=== PATIENT | male | born 1960 | race Caucasian/White ===

== ENCOUNTER 2019-02-22 17:38 | Emergency (ER) | payer OTHER ==
[~2019-02-22] VITALS: Ht 180.3 cm; Wt 74.8 kg
[2019-02-22 17:38] VITALS: BP 131/64
--- NOTE | 2019-02-22 17:53 | NUR ---
TO ER 10, AWAITING FOR PROVIDER TO SEE
== END 2019-02-22 18:16 | disposition home or self-care (01) ==
LOC: ER 17:42
DX: J06.9 Acute upper respiratory infection, unspecified (principal); R09.81 Nasal congestion; F19.10 Other psychoactive substance abuse, uncomplicated

== ENCOUNTER 2019-08-13 04:55 | Emergency (ER) | payer OTHER ==
[~2019-08-13] VITALS: Ht 185.4 cm; Wt 83.9 kg
--- NOTE | 2019-08-13 05:12 | NUR ---
PT CAME TO ER C/O UPPER ABDOMINAL PAIN. PT STATES THAT HE HAS BEEN HAVING EXTREME PAIN. HX OF GALLBLADDER STONES. AAOX4. NO SOB. BREATHING EVENLY AND UNLABORED ON ROOM AIR. CONNECTED TO MONITOR.
--- NOTE | 2019-08-13 05:19 | NUR ---
US AT BEDSIDE
[2019-08-13] MEDS ORDERED: MORPHINE SULFATE INJ 2 MG/ML DISP.SYRIN ONE (05:48)
[2019-08-13 05:55] LABS: APPEARANCE,URINE Clear (CLEAR); BILIRUBIN,URINE Negative (NEGATIVE); BLOOD, URINE Negative Ery/uL (NEGATIVE); COLOR,URINE Yellow (YELLOW); KETONES,URINE Negative (NEGATIVE); LEUKOCYTE ESTERASE ,URINE Negative (NEGATIVE); NITRITE, URINE Negative (NEGATIVE); PH,URINE 5.5 (5.0-8.0); PROTEIN,URINE Negative (NEGATIVE); UGLUCOSE Negative (NEGATIVE); UROBILINOGEN,URINE 0.2 EU/dL (0.2)
[2019-08-13 05:59] LABS: BASOPHILS # (AUTO) 0.1 /CMM (0.0-0.2); BASOPHILS % (AUTO) 1.1 % (0.0-2.0); EOSINOPHILS % (AUTO) 5.1 % (0.0-6.0); HEMATOCRIT 47 % (39-51); HEMOGLOBIN 15.6 g/dL (13.5-17.5); LYMPHOCYTES # (AUTO) 2.6 /CMM (0.8-4.8); LYMPHOCYTES % (AUTO) 36.5 % (20.0-44.0); MEAN CORPUSCULAR HGB CONC 34 g/dl (31.0-36.0); MEAN CORPUSCULAR VOLUME 84 fL (80-96); MONOCYTES # (AUTO) 0.5 /CMM (0.1-1.30); MONOCYTES % (AUTO) 7.7 % (2.0-12.0); NEUTROPHILS # (AUTO) 3.5 /CMM (1.8-8.9); NEUTROPHILS % (AUTO) 49.6 % (43.0-81.0); PLATELET COUNT (AUTO) 146 /CMM (150-450); RED BLOOD CELL COUNT(AUTO) 5.55 MIL/uL (4.5-6.0)
[2019-08-13] MEDS ORDERED: MORPHINE SULFATE INJ 2 MG/ML DISP.SYRIN IV ONE ×2 (06:00→06:30)
[2019-08-13 06:06] LABS: CALCIUM, SERUM 8.6 mg/dL (8.5-10.1); CREATININE 1.2 mg/dL (0.6-1.3); POTASSIUM 3.9 mmol/L (3.5-5.1)
[2019-08-13 06:12] LABS: ALBUMIN 3.5 g/dL (3.4-5.0); BILIRUBIN,DIRECT 0.1 mg/dL (0.0-0.2); BILIRUBIN,TOTAL 0.3 mg/dL (0.2-1.0); TOTAL PROTEIN, SERUM 7.3 g/dL (6.4-8.2)
[2019-08-13] MEDS ORDERED: MORPHINE SULFATE INJ 4 MG/ML DISP.SYRIN ONE (06:27)
[2019-08-13] MEDS ORDERED: ONDANSETRON HCL/PF 4 MG/2 ML VIAL ONE (06:27)
[2019-08-13] MEDS ORDERED: IV NS 0.9% 500 ML BAG IV ONE (06:30)
[2019-08-13] MEDS ORDERED: ONDANSETRON HCL/PF 4 MG/2 ML VIAL IVP ONE (06:30)
--- NOTE | 2019-08-13 07:49 | NUR ---
REPORT GIVEN TO SARTHAK GARCIA FOR RICK.
[2019-08-13] MEDS ORDERED: HYDROMORPHONE 1 MG/1 ML DISP.SYRIN IV ONE (08:00)
[2019-08-13] MEDS ORDERED: HYDROMORPHONE 1 MG/1 ML DISP.SYRIN ONE (08:01)
--- NOTE | 2019-08-13 09:41 | NUR ---
CALLED [facility] FOR TRANSPORT TO [place]. ETA 101
--- NOTE | 2019-08-13 10:46 | NUR ---
Patient discharged to home in stable condition. Written and verbal after care instructions given. Patient verbalizes understanding of instruction. IV removed. Catheter intact and site benign. Pressure and 4x4 applied to site. No bleeding noted.
[2019-08-13 10:54] VITALS: BP 145/80
--- NOTE | 2019-08-13 10:57 | NUR ---
Young kaye in EDM - 08/13/19 at 1057 by RADHA shahab perales called regarding pt plt level of 41. made aware
[2019-08-17] MEDS ORDERED: CEPH-570 PO (13:50)
== END 2019-08-13 10:57 | disposition home or self-care (01) ==
LOC: ER 04:56
DX: K80.50 Calculus of bile duct without cholangitis or cholecystitis without obstruction (principal)
CPT/HCPCS: 36415; 74176; 76705; 80048; 80076; 81001; 83690; 85025; 96374; 96375; 96376; 99284; J1170; J2270; J2405; J7040; 81000-TC

== ENCOUNTER 2019-08-13 22:21 | Inpatient (IN) | payer OTHER ==
[~2019-08-13] VITALS: Ht 180.3 cm; Wt 78.0 kg
--- NOTE | 2019-08-13 22:35 | NUR ---
URINE COLLECTED AND SENT TO LAB
--- NOTE | 2019-08-13 22:43 | NUR ---
[id number] FROM HOME C/C ABD PAIN. AAOX4. WAS SEEN HERE LAST NIGHT FOR GALLSTONES. PLACED ON MONITOR AND PULSE OX. AWAITING MD FOR EVAL.WILL COTNINUE TO MONITOR. NO ACUTE DISTRESS NOTED. VSS. RR EVEN AND UNALBORED.
[2019-08-13] MEDS ORDERED: ONDANSETRON HCL/PF 4 MG/2 ML VIAL IVP ONE (23:00)
[2019-08-13] MEDS ORDERED: HYDROMORPHONE INJ 2 MG/ML DISP.SYRIN IV ONE (23:00)
[2019-08-13] MEDS ORDERED: IBUPROFEN 600 MG TABLET PO ONE ×2 (23:00→23:07)
[2019-08-13] MEDS ORDERED: ONDANSETRON HCL/PF 4 MG/2 ML VIAL ONE (23:07)
[2019-08-13] MEDS ORDERED: HYDROMORPHONE 1 MG/1 ML DISP.SYRIN ONE (23:07)
[2019-08-13 23:12] LABS: BASOPHILS # (AUTO) 0.1 /CMM (0.0-0.2); BASOPHILS % (AUTO) 1.2 % (0.0-2.0); EOSINOPHILS % (AUTO) 2.9 % (0.0-6.0); HEMATOCRIT 47 % (39-51); HEMOGLOBIN 15.8 g/dL (13.5-17.5); LYMPHOCYTES # (AUTO) 2.4 /CMM (0.8-4.8); MEAN CORPUSCULAR HGB CONC 34 g/dl (31.0-36.0); MEAN CORPUSCULAR VOLUME 84 fL (80-96); MONOCYTES # (AUTO) 0.6 /CMM (0.1-1.30); MONOCYTES % (AUTO) 6.9 % (2.0-12.0); NEUTROPHILS # (AUTO) 5.7 /CMM (1.8-8.9); PLATELET COUNT (AUTO) 163 /CMM (150-450); RED BLOOD CELL COUNT(AUTO) 5.57 MIL/uL (4.5-6.0); WHITE BLOOD COUNT (AUTO) 9.1 K/uL (4.3-11.0)
[2019-08-13 23:20] LABS: CREATININE 1.2 mg/dL (0.6-1.3); POTASSIUM 4.1 mmol/L (3.5-5.1)
[2019-08-13 23:26] LABS: ALBUMIN 3.7 g/dL (3.4-5.0); BILIRUBIN,TOTAL 0.3 mg/dL (0.2-1.0); TOTAL PROTEIN, SERUM 7.5 g/dL (6.4-8.2)
--- NOTE | 2019-08-13 23:38 | NUR ---
US at bedside
--- NOTE | 2019-08-14 01:37 | NUR ---
PAGED DR.TIM RICHARDSON FOR ADMISSION.
--- NOTE | 2019-08-14 02:30 | NUR ---
RESTING COMFORTABLY. VSS.
--- NOTE | 2019-08-14 02:46 | NUR ---
REPORT GIVEN TO RANDOLPH GARCIA FOR RICK
[2019-08-14 03:05] VITALS: BP 134/83
[2019-08-14 03:13] VITALS: BP 134/83
--- NOTE | 2019-08-14 03:15 | NUR ---
ADMISSION NOTE PATIENT ADMITTED TO [facility] RM 320 BED 1 FOR CHOLELITHIASIS. PATIENT REPORTS ABD PAIN ONLY 2/10 AT THIS TIME TO UPPER REGION OF ABD. PATIENT REPORTS HE HAD SEVERE STOMACH PAIN YESTERDAY 10 AFTER EATING BOTH YESTERDAY AND CALLED AMBULANCE HE THOUGHT HE WAS HAVING A HEART ATTACK. ORIENTED TO ROOM. BED DOWN LOCKED SRX2 WILL AWAIT FURTHER ORDERS.
[2019-08-14] MEDS ORDERED: IV NS 0.9% 1,000 ML IV PRN (03:38)
[2019-08-14] MEDS ORDERED: ACETAMINOPHEN 325 MG TABLET PO PRN (04:00)
[2019-08-14] MEDS ORDERED: ONDANSETRON HCL/PF 4 MG/2 ML VIAL IVP PRN (04:00)
[2019-08-14] MEDS ORDERED: Z GUARD REMEDY 2 OZ OINT TP PRN (04:00)
--- NOTE | 2019-08-14 06:20 | NUR ---
PT REFUSING IVF, CLOSING NOTE PATIENT IN BED RESTING. IV TO RIGHT AC KEEPS HAVING DOWNWARD OCCLUSION. PT STATES AT THIS TIME, "YOU KNOW, I REALLY DON'T WANT THAT THING RUNNING RIGHT NOW CAN WE TURN IT OFF I WANT TO REST RIGHT NOW." IVF PUMP TURNED OFF RIGHT AC 20 GAUGE PATENT CDI. NO S/S OF INFLITRATION. PT ENCOURAGED TO DRINK PO FLUIDS. BED DOWN LOCKED SRX2 WILL CONT OT MONITOR.
[2019-08-14 08:00] VITALS: BP 106/55
[2019-08-14] MEDS: MORPHINE SULFATE INJ 2 MG/ML DISP.SYRIN IV PRN ×3 (09:38→20:51)
--- NOTE | 2019-08-14 12:00 | NUR ---
IV BEEPING,NO BLOOD RETURN-RESTARTED RT. FOREARM #[id number] ANGIO.
[2019-08-14] MEDS: LEVOFLOXACIN 500 MG /D5W 100ML 500 MG in PREMIX 1 EA IV SCH (15:29)
[2019-08-14 16:00] VITALS: BP 129/77
--- NOTE | 2019-08-14 18:30 | NUR ---
med. x 2 for abd. pain with morphine with good effect. had hida scan today.
--- NOTE | 2019-08-14 19:53 | NUR ---
MS/RN OPENING NOTES RECEIVED PATIENT IN BED, AWAKE, ALERT X3, ABLE TO VERBALIZE NEEDS, DR FLOWER WAS AT BEDSIDE DISCUSSED PLAN FOR PROCEDURE EITHER TOMORROW OR TUESDAY TO REMOVE GALL BLADDER OUT. PATIENT HAD HIDA SCAN AND MUNDO MENTIONED ABOUT ,MRCP. WILL MONITOR, PATIENT REPORTED WITH ABDOMINAL PAIN. TO MONITOR AMD PROVIDED NEEDED MEDS.BED LOCKED, CALL LIGHTS WITHIN REACH. WILL MONITOR.
[2019-08-14 20:00] VITALS: BP 110/71
[2019-08-15] VITALS (7 sets, daily range): BP systolic 100–144; BP diastolic 57–92
--- NOTE | 2019-08-15 06:11 | NUR ---
320-1MS/RN NOTES PATIENT ABLE TO SLEEP INTERMITENTLY., RESPIRATIONS EVEN AND UNLABORED, BED LOVKED, CAA LIGHTS WITHIN REQFGBED LOCKED, CINTHYA WILL ENDORSE TO AM RN FOR RICK
[2019-08-15 06:20] LABS: BASOPHILS # (AUTO) 0.1 /CMM (0.0-0.2); EOSINOPHILS % (AUTO) 4.5 % (0.0-6.0); HEMATOCRIT 45 % (39-51); LYMPHOCYTES # (AUTO) 1.9 /CMM (0.8-4.8); LYMPHOCYTES % (AUTO) 27.7 % (20.0-44.0); MEAN CORPUSCULAR HGB CONC 33 g/dl (31.0-36.0); MEAN CORPUSCULAR VOLUME 83 fL (80-96); MONOCYTES # (AUTO) 0.5 /CMM (0.1-1.30); MONOCYTES % (AUTO) 7.3 % (2.0-12.0); NEUTROPHILS # (AUTO) 4.1 /CMM (1.8-8.9); NEUTROPHILS % (AUTO) 59.5 % (43.0-81.0); PLATELET COUNT (AUTO) 146 /CMM (150-450)
[2019-08-15 06:59] LABS: CREATININE 1.3 mg/dL (0.6-1.3); PHOSPHORUS 3.5 mg/dL (2.5-4.9); POTASSIUM 4.4 mmol/L (3.5-5.1)
[2019-08-15] MEDS: LEVOFLOXACIN 500 MG /D5W 100ML 500 MG in PREMIX 1 EA IV SCH (11:53)
[2019-08-15] MEDS ORDERED: ANESTHESIA TRAY IN PYXIS 1 EA TRAY MC ONE (15:05)
[2019-08-15] MEDS ORDERED: BUPIVACAINE 0.5 % PF 150 MG/30 ML VIAL ONE (15:05)
[2019-08-15] MEDS ORDERED: ROCURONIUM BROMIDE 50 MG/5 ML ONE (18:32)
[2019-08-15] MEDS ORDERED: HYDROMORPHONE INJ 2 MG/ML DISP.SYRIN ONE (18:33)
[2019-08-15] MEDS ORDERED: HYDROMORPHONE 1 MG/1 ML DISP.SYRIN ONE (20:04)
--- NOTE | 2019-08-15 20:15 | NUR ---
REPORT FROM OR;PT TO RETURN TO ROOM. REPORT RECIEVED FROM ANAY FROM OR. PATIEHT HAD LAP ALEXANDER. HERMINIA DRAIN WAS INSERTED. PATIENT HAS 4 PUNCTURES/HOLES IN ABD DRESSINGDS CDI NO S/S OF BLEEDING VSS. PATIENT RECENTLY RECIEVED DILAUDID 0.4MG STATES SHE WILL KEEP PATIENT FOR 15 MINS BEFORE BRINGING UP TO ENSURE THERE HAS NOT BEEN A REACTION
[2019-08-15] MEDS ORDERED: ZOLPIDEM TARTRATE 5 MG TABLET PO PRN (20:30)
[2019-08-15] MEDS ORDERED: IV D5/0.45 NACL W/20 MEQ KCL 1L IV PRN ×2 (20:30)
--- NOTE | 2019-08-15 20:35 | NUR ---
patient returned from or post op vitals initiated new orders recieved.
--- NOTE | 2019-08-15 21:43 | NUR ---
PHARMACY DID NOT DELIVER D 5 07/19 NS FAXED REQUEST TO [facility] AND CALLED NATHANIEL TO REQUEST BAG BE DELIVERED FROM [facility].
[2019-08-15] MEDS ORDERED: IV PREMIX D5 1/2NS + KCL 1,000 ML IV ONE (21:55)
[2019-08-15] MEDS: ANCEF 1 GM/50 ML D5W IV SCH ×2 (22:57)
--- NOTE | 2019-08-16 02:30 | NUR ---
NURSE NOTES IS, CRISTAL, PT AMBULATED AMBIEN REQUESTED PATIENT ADMINISTERED AMBIEN ORDERED PATIENT AMBULATED OOB TO BATHROOM TO VOID. PATIENT GIVEN IS INSTRUCTED ON ITS USE, VERBALIZED UNDERSTANDING, DEMONSTRATED PROPER USE.
[2019-08-16] MEDS: ANCEF 1 GM/50 ML D5W IV SCH ×6 (05:23→20:38)
[2019-08-16 07:11] LABS: BASOPHILS % (AUTO) 0.5 % (0.0-2.0); EOSINOPHILS % (AUTO) 0.1 % (0.0-6.0); HEMATOCRIT 42 % (39-51); HEMOGLOBIN 14.2 g/dL (13.5-17.5); LYMPHOCYTES # (AUTO) 1.1 /CMM (0.8-4.8); LYMPHOCYTES % (AUTO) 10.5 % (20.0-44.0); MEAN CORPUSCULAR HGB CONC 34 g/dl (31.0-36.0); MEAN CORPUSCULAR VOLUME 83 fL (80-96); MONOCYTES # (AUTO) 0.6 /CMM (0.1-1.30); MONOCYTES % (AUTO) 5.8 % (2.0-12.0); NEUTROPHILS # (AUTO) 8.3 /CMM (1.8-8.9); NEUTROPHILS % (AUTO) 83.1 % (43.0-81.0); PLATELET COUNT (AUTO) 153 /CMM (150-450); RED BLOOD CELL COUNT(AUTO) 5.07 MIL/uL (4.5-6.0)
--- NOTE | 2019-08-16 07:40 | NUR ---
RN OPENING NOTES RECEIVED PATIENT IN BED RESTING. AWAKE. A/OX4, ABLE TO MAKE NEEDS KNOWN. NOT IN ANY FORM OF DISTRESS. NO SOB. COMPLAINTS OF ABDOMINAL PAIN 01/24, WILL ADMINISTER PAIN MEDS ACCORDINGLY. IV ACCESS INTACT AND PATENT. KEPT PATIENT SAFE AND COMFORTABLE. BED IN LOW/LOCKED POSITION. SIDERAILS UPX2, CALL LIGHT IN REACH. WILL MONITOR PATIENT ACCORDINGLY.
[2019-08-16 07:51] LABS: ALBUMIN 2.9 g/dL (3.4-5.0); BILIRUBIN,TOTAL 0.4 mg/dL (0.2-1.0); CALCIUM, SERUM 8.7 mg/dL (8.5-10.1); CREATININE 1.4 mg/dL (0.6-1.3); POTASSIUM 4.1 mmol/L (3.5-5.1); TOTAL PROTEIN, SERUM 6.5 g/dL (6.4-8.2)
[2019-08-16] MEDS: MORPHINE SULFATE INJ 2 MG/ML DISP.SYRIN IV PRN ×3 (07:54→18:34)
--- NOTE | 2019-08-16 07:54 | NUR ---
RN NOTES COMPLAINTS OF ABDOMINAL PAIN 02/24, PATIENT REQUESTED MORPHINE. MORPHINE 2MG IV GIVEN ORDERED. WILL REASSESS ACCORDINGLY
[2019-08-16 07:55] VITALS: BP 102/65
[2019-08-16] MEDS: HYDROCODONE/APAP 5/325MG 1 EACH TABLET PO PRN ×2 (10:34→16:05)
[2019-08-16 16:00] VITALS: BP 130/76
[2019-08-16 18:00] VITALS: BP 136/76
--- NOTE | 2019-08-16 18:20 | NUR ---
transferred patient to room 204-1. bedside report given to JOSE Combs for continuity of care.
--- NOTE | 2019-08-16 18:30 | NUR ---
RN CLOSING NOTES ALERT AND AWAKE ORIENTED X4. NO SOB. C/O PAIN, PAIN MED GIVEN ORDERED YESENIA WELL. RIGHT FA #[id number] INTACT AND PATENT. ABDOMINAL SURGICAL INCISION SITE INTACT. HERMINIA DRAIN INTACT WITH 10 ML OUTPUT SEROUS DRAINAGE. ORIENTED PATIENT TO ROOM, ROOMMATE, UNIT AND CALL LIGHT. BED IN LOW/LOCKED POSITION. SIDERAILS UPX2, CALL LIGHT IN REACH. IN NO APPARENT DISTRESS.
[2019-08-16 20:00] VITALS: BP 120/71
[2019-08-17] MEDS: MORPHINE SULFATE INJ 2 MG/ML DISP.SYRIN IV PRN ×3 (01:29→12:48)
--- NOTE | 2019-08-17 01:30 | NUR ---
MS RN NOTES PATIENT COMPLAINED OF 9/10 ABDOMINAL PAIN, MORPHINE 2MG GIVEN VIA IV PUSH. NON-PHARMACOLOGICAL INTERVENTIONS PROVIDED. VITAL SIGNS WNL. WILL CONTINUE TO MONITOR.
[2019-08-17] MEDS: ANCEF 1 GM/50 ML D5W IV SCH ×4 (05:05→12:39)
--- NOTE | 2019-08-17 06:55 | NUR ---
RN NOTES AWAKE, MORNING CARE RENDERED, CALL LIGHT WITHIN REACH, AFSHINAILSUPX2, PT. NEEDS ATTENDED
--- NOTE | 2019-08-17 06:57 | NUR ---
RN NOTES AWAKE, MORNING CARE RENDERED, HERMINIA DRAIN IN PLACE, CALL LIGHT WITHIN REACH, SIDERAILSUPX2, PT.NEEDS ATTENDED
[2019-08-17 08:00] VITALS: BP 130/66
[2019-08-17 13:11] LABS: CALCIUM, SERUM 8.3 mg/dL (8.5-10.1); CREATININE 1.2 mg/dL (0.6-1.3)
[2019-08-17 13:14] LABS: ALBUMIN 2.9 g/dL (3.4-5.0); BILIRUBIN,TOTAL 0.4 mg/dL (0.2-1.0); TOTAL PROTEIN, SERUM 6.7 g/dL (6.4-8.2)
[2019-08-17] MEDS ORDERED: CEPH-570 PO (13:50)
--- NOTE | 2019-08-17 15:30 | NUR ---
RN CLOSING/DISCHARGE NOTES ALERT AND AWAKE ORIENTED X4. NO SOB. DENIES ANY C/O PAIN NOR DISCOMFORT AT THIS TIME. DISCHARGE INSTRUCTIONS AND PACKET GIVEN TO PATIENT. RYAN INTACT. HERMINIA DRAIN REMOVED BY DR. FLOWER. PATIENT AMBULATORY WITH STEADY GAIT. ALL BELONGINGS ACCOUNTED FOR. IV ACCES CATHETER REMOVED WITH CATHETER TIP INTACT. PATIENT LEFT VIA PRIVATE CAR IN STABLE CONDITION.
== END 2019-08-17 15:30 | disposition home or self-care (01) | DRG 263 ==
LOC: ER 22:29 → MED 08-14 02:47 → MEDSG2 08-16 18:07
PROVIDERS: ADMIT Internal Medicine; ATTEND Internal Medicine
PROC: 0FT44ZZ Resection of Gallbladder, Percutaneous Endoscopic Approach (ICD-10-PCS; principal; 2019-08-15)
DX: K80.00 Calculus of gallbladder with acute cholecystitis without obstruction (principal); R74.0 Nonspecific elevation of levels of transaminase and lactic acid dehydrogenase [LDH]
CPT/HCPCS: 36415; 76705-TC; 78226; 80048-TC; 80053-TC; 80061-TC; 80076-TC; 83690-TC; 83735-TC; 84100-TC; 84484-TC; 85025-TC; 86850-TC; 87081-TC; 88304-TC; A4216; A9537; G0378; J0330; J0690; J1170; J1885; J1956; J2270; J2405; J2704; J2710; J3480; J3490; J7030; J7050; J7060

== ENCOUNTER 2019-09-14 12:42 | Emergency (ER) | payer OTHER ==
[~2019-09-14] VITALS: Ht 177.8 cm; Wt 76.2 kg
[~2019-09-14 12:42] MED LIST: CEPH-570 PO
--- NOTE | 2019-09-14 12:50 | NUR ---
JALEEL [address] [facility] HOUSING FOR UPPER ABDOMINAL PAIN RADIATES TO HIS BACK S/P CHOLECYSTECTOMY X 3 WEEKS AGO. PATIENT A/OX4, BREATHING EVEN AND UNLABORED, NOS OB NOTED, NEEDS ATTENDED, KEPT COMFORTABLE. DR. STERLING AT BEDSIDE FOR EVAL.
[2019-09-14] MEDS ORDERED: DIATR MEGLU/DIATRIZOATE SODIUM 30 ML BOTTLE (GASTROGRAPHIN) PO ONE (13:00)
[2019-09-14] MEDS ORDERED: KETOROLAC TROMETHAMINE INJ 30 MG/ML VIAL IV ONE (13:00)
[2019-09-14] MEDS ORDERED: IV NS 0.9% 1,000 ML BAG IV ONE (13:00)
[2019-09-14] MEDS ORDERED: ONDANSETRON HCL/PF 4 MG/2 ML VIAL IVP ONE (13:00)
[2019-09-14] MEDS ORDERED: ONDANSETRON HCL/PF 4 MG/2 ML VIAL ONE (13:12)
[2019-09-14] MEDS ORDERED: KETOROLAC TROMETHAMINE INJ 30 MG/ML VIAL ONE (13:13)
[2019-09-14] MEDS ORDERED: DIATR MEGLU/DIATRIZOATE SODIUM 30 ML BOTTLE (GASTROGRAPHIN) ONE (13:16)
[2019-09-14 13:20] LABS: BASOPHILS # (AUTO) 0.1 /CMM (0.0-0.2); BASOPHILS % (AUTO) 1.6 % (0.0-2.0); EOSINOPHILS % (AUTO) 3.4 % (0.0-6.0); HEMATOCRIT 47 % (39-51); HEMOGLOBIN 15.5 g/dL (13.5-17.5); LYMPHOCYTES % (AUTO) 29.9 % (20.0-44.0); MEAN CORPUSCULAR HGB CONC 33 g/dl (31.0-36.0); MEAN CORPUSCULAR VOLUME 84 fL (80-96); MONOCYTES # (AUTO) 0.6 /CMM (0.1-1.30); MONOCYTES % (AUTO) 8.6 % (2.0-12.0); NEUTROPHILS # (AUTO) 3.7 /CMM (1.8-8.9); NEUTROPHILS % (AUTO) 56.5 % (43.0-81.0); PLATELET COUNT (AUTO) 137 /CMM (150-450); RED BLOOD CELL COUNT(AUTO) 5.59 MIL/uL (4.5-6.0); WHITE BLOOD COUNT (AUTO) 6.6 K/uL (4.3-11.0)
[2019-09-14 13:31] LABS: CALCIUM, SERUM 9.2 mg/dL (8.5-10.1); CREATININE 1.2 mg/dL (0.6-1.3); POTASSIUM 5.1 mmol/L (3.5-5.1)
[2019-09-14 13:37] LABS: ALBUMIN 3.5 g/dL (3.4-5.0); BILIRUBIN,DIRECT 0.3 mg/dL (0.0-0.2); BILIRUBIN,TOTAL 0.7 mg/dL (0.2-1.0); TOTAL PROTEIN, SERUM 7.6 g/dL (6.4-8.2)
[2019-09-14 14:10] LABS: APPEARANCE,URINE Clear (CLEAR); BILIRUBIN,URINE Negative (NEGATIVE); BLOOD, URINE Negative Ery/uL (NEGATIVE); KETONES,URINE Negative (NEGATIVE); LEUKOCYTE ESTERASE ,URINE Negative (NEGATIVE); NITRITE, URINE Negative (NEGATIVE); PH,URINE 5.5 (5.0-8.0); PROTEIN,URINE Negative (NEGATIVE); UGLUCOSE Negative (NEGATIVE); UROBILINOGEN,URINE 0.2 EU/dL (0.2)
[2019-09-14 14:11] LABS: COLOR,URINE YELLOW (YELLOW)
--- NOTE | 2019-09-14 15:00 | NUR ---
patient drinking oral contrast.
[2019-09-14 17:29] VITALS: BP 125/74
--- NOTE | 2019-09-14 17:29 | NUR ---
IV removed. Catheter intact and site benign. Pressure and 4x4 applied to site. No bleeding noted.Patient discharged to home in stable condition. Written and verbal after care instructions given. Patient verbalizes understanding of instruction.
== END 2019-09-14 17:29 | disposition home or self-care (01) ==
LOC: ER 12:44
DX: R10.10 Upper abdominal pain, unspecified (principal); R11.0 Nausea; F19.10 Other psychoactive substance abuse, uncomplicated; Z79.899 Other long term (current) drug therapy; Z90.49 Acquired absence of other specified parts of digestive tract
CPT/HCPCS: 36415; 71045; 74176; 80048; 80076; 81001; 83690; 85025; 96374; 96375; 99285; J1885; J2405; J7030; Q9963 ×2; 81000-TC

== ENCOUNTER 2021-05-27 21:34 | Emergency (ER) | payer OTHER ==
[~2021-05-27] VITALS: Ht 180.3 cm; Wt 79.4 kg
[2021-05-27 21:38] VITALS: BP 137/88
--- NOTE | 2021-05-27 22:02 | NUR ---
Young kaye in ED - 05/27/21 at 2203 by GIFTY Patient left without being seen by ER Physician.
--- NOTE | 2021-05-27 22:03 | NUR ---
Patient left without being seen by ER Physician, RISK AND BENEFITS HAVE BEEN EXPLAINED TO PATIENT X 2.
== END 2021-05-27 22:08 | disposition left against medical advice (07) ==
LOC: ER 21:38
DX: Z53.21 Procedure and treatment not carried out due to patient leaving prior to being seen by health care provider (principal); R07.89 Other chest pain; E78.5 Hyperlipidemia, unspecified; Z86.718 Personal history of other venous thrombosis and embolism